=== PATIENT | male | born 1960 | race African-American/Black ===

== ENCOUNTER → 2020-11-23 | Day surgery (SDC) | payer MEDICARE ==
[~2020-11-23] MED LIST: Lidocaine 1% PF 5 ML VIAL ONE; Prevnar 13-Val Conj/PF 0.5 ML SYRINGE IM ONE; Sodium Bicarbonate 2.5 MEQ/5 ML VIAL ONE
== END ==
LOC: CSHRAD 12:43
PROVIDERS: ATTEND Specialist
DX: R18.8 Other ascites (principal)
CPT/HCPCS: 49083

== ENCOUNTER → 2020-11-30 | Day surgery (SDC) | payer MEDICARE ==
[~2020-11-30] MED LIST changes: +FLU VACC QS2020-21(6MOS UP)/PF 60 MCG/0.5 ML SYRINGE IM ONE; -Prevnar 13-Val Conj/PF 0.5 ML SYRINGE IM ONE
[2020-11-30 12:39] LABS: #Monocytes 0.8 10x3/uL (0.0-1.1); #Neutrophils 11.3 10x3/uL (1.5-8.4); %Basophils 0.3 % (0.0-2.0); %Eosinophils 0.2 % (0.0-6.0); %Lymphocytes 6.2 % (18.0-47.0); %Monocytes 6.1 % (0.0-10.0); Hemoglobin 13.9 g/dL (13.5-17.5); Mean Corpuscular HGB CONC 32.4 g/dL (32.0-36.0); Mean Corpuscular Hemoglobin 28.8 pg (27.0-33.0); Mean Platelet Volume 10.7 fl (7.4-10.4); Platelet Count 242 10x3/uL (150-450); RBC Distribution Width 14.4 % (11.5-14.5); Red Blood Cell (RBC) Count 4.82 10x6/uL (4.32-5.72); White Blood Cell (WBC) Count 13.2 10x3/uL (3.5-10.5)
[2020-11-30 12:46] LABS: ALT (SGPT) 21 U/L (8-55); AST (SGOT) 33 U/L (5-34); Albumin 2.9 g/dL (3.4-4.8); Alkaline Phosphatase 155 U/L (40-110); Anion Gap 14 mmol/L (10-20); BUN (Urea Nitrogen) 41 mg/dL (8.4-25.7); Bilirubin, Total 0.9 mg/dL (0.2-1.2); Calc. Creatinine Clearance 0 mL/min (70-130); Calcium 8.8 mg/dL (7.8-10.44); Carbon Dioxide 25 mmol/L (23-31); Chloride 99 mmol/L (98-107); Globulin 3.5 g/dL (2.4-3.5); Glucose 88 mg/dL (80-115); Potassium 5.5 mmol/L (3.5-5.1); Protein, Total 6.4 g/dL (5.8-8.1); Sodium 132 mmol/L (136-145)
[2020-11-30 14:11] VITALS: BMI 23.7
[2020-11-30 14:31] VITALS: BP 92/69; TEMP 97.1
== END ==
LOC: CSHRAD 10:59
PROVIDERS: ATTEND Specialist
DX: R18.8 Other ascites (principal)
CPT/HCPCS: 49083; 80053; 85025

== ENCOUNTER → 2020-12-07 | Day surgery (SDC) | payer MEDICARE ==
[~2020-12-07] MED LIST changes: -FLU VACC QS2020-21(6MOS UP)/PF 60 MCG/0.5 ML SYRINGE IM ONE; -Lidocaine 1% PF 5 ML VIAL ONE
[2020-12-07 14:19] VITALS: BP 84/58; TEMP 97.8
== END ==
LOC: CSHRAD 11:37
PROVIDERS: ATTEND Specialist
DX: R18.8 Other ascites (principal)
CPT/HCPCS: 49083

== ENCOUNTER → 2020-12-14 | Day surgery (SDC) | payer MEDICARE ==
[~2020-12-14] MED LIST changes: +Lidocaine 1% PF 5 ML VIAL ONE
== END ==
LOC: CSHRAD 10:18
PROVIDERS: ATTEND Specialist
DX: R18.8 Other ascites (principal)
CPT/HCPCS: 49083

== ENCOUNTER 2020-12-19 15:54 | Inpatient (IN) | payer MEDICARE ==
[2020-12-19] MEDS ORDERED: cefTRIAXone\\ROCEPHIN 2 GM VIAL ONE (16:39)
[2020-12-19 16:49] LABS: #Monocytes 0.9 10x3/uL (0.0-1.1); #Neutrophils 17.2 10x3/uL (1.5-8.4); %Basophils 0.2 % (0.0-2.0); %Eosinophils 0.1 % (0.0-6.0); %Monocytes 4.5 % (0.0-10.0); %Neutrophils 90.5 % (40.0-75.0); Hemoglobin 13.7 g/dL (13.5-17.5); Mean Corpuscular HGB CONC 32.2 g/dL (32.0-36.0); Mean Corpuscular Hemoglobin 29.5 pg (27.0-33.0); Mean Corpuscular Volume 91.6 fl (81.2-95.1); Mean Platelet Volume 9.9 fl (7.4-10.4); Platelet Count 188 10x3/uL (150-450); RBC Distribution Width 15.5 % (11.5-14.5); Red Blood Cell (RBC) Count 4.65 10x6/uL (4.32-5.72); White Blood Cell (WBC) Count 18.9 10x3/uL (3.5-10.5)
[2020-12-19 17:04] LABS: ALT (SGPT) 26 U/L (8-55); AST (SGOT) 32 U/L (5-34); Albumin 2.7 g/dL (3.4-4.8); Alkaline Phosphatase 123 U/L (40-110); Anion Gap 13 mmol/L (10-20); BUN (Urea Nitrogen) 36 mg/dL (8.4-25.7); Bilirubin, Total 1.5 mg/dL (0.2-1.2); Calc. Creatinine Clearance 0 mL/min (70-130); Calcium 8.5 mg/dL (7.8-10.44); Carbon Dioxide 22 mmol/L (23-31); Chloride 102 mmol/L (98-107); Globulin 2.7 g/dL (2.4-3.5); Glucose 98 mg/dL (80-115); Potassium 5.6 mmol/L (3.5-5.1); Protein, Total 5.4 g/dL (5.8-8.1); Sodium 131 mmol/L (136-145)
[2020-12-19 17:27] LABS: CKMB 2.6 ng/mL (0-6.6)
[2020-12-19] MEDS ORDERED: VANCOMYCIN 2 GRAM/400 ML BAG 2 GM in Premix Bag 1 BAG IVPB SCH (17:45)
[2020-12-19] MEDS ORDERED: Senokot S 8.6-50 MG TAB PO PRN (17:59)
[2020-12-19 18:51] LABS: Bilirubin Neg (Negative); Blood, Urine 150 (Negative); Clarity Clear (Clear); Glucose, Urine (Dipstick) Normal (Negative); Ketone, Urine Negative (Negative); Leukocyte 100 (Negative); Nitrite Positive (Negative); Protein, Urine (Dipstick) 15 mg/dl (Neg-Trace); Urobilinogen Normal mg/dL (Less than 2)
[2020-12-19 18:53] LABS: Troponin I 0.057 ng/mL (< 0.028)
[2020-12-19 19:09] LABS: Bacteria/HPF 4+ HPF (None Seen); Mucous/LPF 1+ LPF (<2+); Squamous Epithelial 0-3 HPF (0-3)
[2020-12-19 20:21] VITALS: BMI 26.3
[2020-12-19] MEDS: Albumin 25% 25 GM/100 ML BOT IVPB SCH (20:44)
[2020-12-19] MEDS: Cefepime 1 GM in Sodium Chloride 0.9% 100 ML IVPB SCH (21:06)
[2020-12-19] MEDS: HYDROcodone/Acetaminophen 7.5/325 mg Tablet PO PRN (22:52)
[2020-12-20 01:14] LABS: Troponin I 0.072 ng/mL (< 0.028)
[2020-12-20] MEDS: Albumin 25% 25 GM/100 ML BOT IVPB SCH ×3 (02:10→14:42)
[2020-12-20] MEDS: HYDROcodone/Acetaminophen 5/325 mg Tablet PO PRN ×2 (02:45→06:23)
[2020-12-20 06:00] LABS: ALT (SGPT) 21 U/L (8-55); AST (SGOT) 28 U/L (5-34); Albumin 3.1 g/dL (3.4-4.8); Alkaline Phosphatase 107 U/L (40-110); Anion Gap 14 mmol/L (10-20); BUN (Urea Nitrogen) 36 mg/dL (8.4-25.7); Bilirubin, Total 1.4 mg/dL (0.2-1.2); Calc. Creatinine Clearance 68 mL/min (70-130); Calcium 8.8 mg/dL (7.8-10.44); Carbon Dioxide 17 mmol/L (23-31); Chloride 104 mmol/L (98-107); Globulin 2.8 g/dL (2.4-3.5); Glucose 98 mg/dL (80-115); Potassium 5.3 mmol/L (3.5-5.1); Protein, Total 5.9 g/dL (5.8-8.1); Sodium 130 mmol/L (136-145)
[2020-12-20 06:02] LABS: INR-International Normal Ratio 1.1; Prothrombin Time 12.2 sec (9.5-12.1)
[2020-12-20 07:05] LABS: Anisocytosis SLIGHT = 6-15 cells (100X) (0-5/hpf); Band 5 % (5-11); Hemoglobin 12.5 g/dL (13.5-17.5); Lymphocytes 4 % (21-51); MDiff Complete? YES; Mean Corpuscular HGB CONC 32.1 g/dL (32.0-36.0); Mean Corpuscular Hemoglobin 29.6 pg (27.0-33.0); Mean Corpuscular Volume 92.2 fl (81.2-95.1); Mean Platelet Volume 10.5 fl (7.4-10.4); Microcytosis SLIGHT = 6-15 cells (100X) (0-5/hpf); Monocytes 3 % (0-10); Neutrophil 86 % (42-75); Platelet Count 170 10x3/uL (150-450); Platelet Morphology Comment Appears Adequate; RBC Distribution Width 15.7 % (11.5-14.5); Reactive Lymphocytes 2 % (0-10); Red Blood Cell (RBC) Count 4.23 10x6/uL (4.32-5.72); White Blood Cell (WBC) Count 16.6 10x3/uL (3.5-10.5)
[2020-12-20] MEDS: Cefepime 1 GM in Sodium Chloride 0.9% 100 ML IVPB SCH ×2 (08:10→21:09)
[2020-12-20] MEDS: Vancomycin HCl 1 GM in Sodium Chloride 0.9% 250 ML 250 ML IVPB SCH ×2 (10:11→21:08)
[2020-12-20] MEDS ORDERED: Amiodarone 200 MG TAB PO SCH (10:30)
[2020-12-20] MEDS ORDERED: Apixaban 5 MG TAB PO SCH (10:30)
[2020-12-20] MEDS: Furosemide 20 MG TAB PO SCH (14:42)
[2020-12-20] MEDS: Midodrine HCl 2.5 MG TAB PO SCH ×2 (14:42→21:08)
[2020-12-20 17:57] LABS: SARS-CoV-2 PCR by NAA Not Detected (NotDetected)
[2020-12-20] MEDS: Apixaban 5 MG TAB PO SCH (21:08)
[2020-12-20] MEDS: Amiodarone 200 MG TAB PO SCH (21:09)
[2020-12-20] MEDS: Tamsulosin HCl 0.4 MG CAP PO SCH (21:17)
[2020-12-21] MEDS: HYDROcodone/Acetaminophen 5/325 mg Tablet PO PRN (00:17)
[2020-12-21 06:45] LABS: Anion Gap 11 mmol/L (10-20); BUN (Urea Nitrogen) 37 mg/dL (8.4-25.7); Calc. Creatinine Clearance 74 mL/min (70-130); Calcium 8.5 mg/dL (7.8-10.44); Carbon Dioxide 23 mmol/L (23-31); Chloride 103 mmol/L (98-107); Glucose 110 mg/dL (80-115); Magnesium 2.1 mg/dL (1.6-2.6); Potassium 4.9 mmol/L (3.5-5.1); Sodium 132 mmol/L (136-145)
[2020-12-21] MEDS ORDERED: Spironolactone 25 MG TAB PO SCH (08:00)
[2020-12-21 08:33] LABS: Vancomycin, Trough 23.7 ug/mL
[2020-12-21] MEDS: Cefepime 1 GM in Sodium Chloride 0.9% 100 ML IVPB SCH ×2 (09:15→20:53)
[2020-12-21] MEDS: Furosemide 20 MG TAB PO SCH ×2 (09:16→14:27)
[2020-12-21] MEDS: Tamsulosin HCl 0.4 MG CAP PO SCH ×2 (09:16→20:51)
[2020-12-21] MEDS: Midodrine HCl 2.5 MG TAB PO SCH ×3 (09:16→20:50)
[2020-12-21] MEDS: Apixaban 5 MG TAB PO SCH ×2 (09:17→20:51)
[2020-12-21] MEDS: Amiodarone 200 MG TAB PO SCH ×2 (09:17→20:51)
[2020-12-21] MEDS: Vancomycin HCl 1 GM in Sodium Chloride 0.9% 250 ML 250 ML IVPB SCH (10:50)
[2020-12-21] MEDS: Vancomycin HCl 750 MG in Sodium Chloride 0.9% 250 ML 250 ML IVPB SCH ×2 (11:23→23:40)
[2020-12-21] MEDS: HYDROcodone/Acetaminophen 7.5/325 mg Tablet PO PRN ×2 (11:51→20:51)
[2020-12-21] MEDS: Spironolactone 25 MG TAB PO SCH ×2 (20:55→21:10)
[2020-12-22] MEDS: HYDROcodone/Acetaminophen 7.5/325 mg Tablet PO PRN (02:15)
[2020-12-22 05:33] LABS: #Monocytes 0.8 10x3/uL (0.0-1.1); #Neutrophils 9.6 10x3/uL (1.5-8.4); %Basophils 0.4 % (0.0-2.0); %Eosinophils 0.2 % (0.0-6.0); %Lymphocytes 5.8 % (18.0-47.0); %Monocytes 6.8 % (0.0-10.0); %Neutrophils 84.9 % (40.0-75.0); Mean Corpuscular HGB CONC 32.1 g/dL (32.0-36.0); Mean Corpuscular Hemoglobin 29.3 pg (27.0-33.0); Mean Corpuscular Volume 91.4 fl (81.2-95.1); Mean Platelet Volume 10.5 fl (7.4-10.4); Platelet Count 178 10x3/uL (150-450); Red Blood Cell (RBC) Count 4.43 10x6/uL (4.32-5.72); White Blood Cell (WBC) Count 11.3 10x3/uL (3.5-10.5)
[2020-12-22 05:43] LABS: Anion Gap 9 mmol/L (10-20); BUN (Urea Nitrogen) 37 mg/dL (8.4-25.7); Calc. Creatinine Clearance 78 mL/min (70-130); Calcium 8.4 mg/dL (7.8-10.44); Carbon Dioxide 24 mmol/L (23-31); Chloride 103 mmol/L (98-107); Glucose 97 mg/dL (80-115); Potassium 5.1 mmol/L (3.5-5.1); Sodium 131 mmol/L (136-145)
[2020-12-22] MEDS: Midodrine HCl 2.5 MG TAB PO SCH (08:33)
[2020-12-22] MEDS: Apixaban 5 MG TAB PO SCH (08:33)
[2020-12-22] MEDS: Amiodarone 200 MG TAB PO SCH (08:33)
[2020-12-22] MEDS: Cefepime 1 GM in Sodium Chloride 0.9% 100 ML IVPB SCH (08:33)
[2020-12-22] MEDS: Furosemide 20 MG TAB PO SCH (08:33)
[2020-12-22] MEDS: Spironolactone 25 MG TAB PO SCH (08:35)
[2020-12-22] MEDS: Tamsulosin HCl 0.4 MG CAP PO SCH (08:35)
[2020-12-22] MEDS: Vancomycin HCl 750 MG in Sodium Chloride 0.9% 250 ML 250 ML IVPB SCH (11:35)
[2020-12-22 12:23] VITALS: BP 88/64; TEMP 98
== END 2020-12-22 14:40 | disposition home or self-care (01) | DRG 872 ==
LOC: CSHERS 15:54 → CSHTELE 18:49
PROVIDERS: ADMIT Family Medicine; ATTEND Family Medicine
PROC: 0W9G3ZZ Drainage of Peritoneal Cavity, Percutaneous Approach (ICD-10-PCS; principal; 2020-12-20)
DX: A41.9 Sepsis, unspecified organism (principal); L03.116 Cellulitis of left lower limb; R18.8 Other ascites; I13.0 Hypertensive heart and chronic kidney disease with heart failure and stage 1 through stage 4 chronic kidney disease, or unspecified chronic kidney disease; I50.42 Chronic combined systolic (congestive) and diastolic (congestive) heart failure; Z20.822 Contact with and (suspected) exposure to COVID-19; Z95.810 Presence of automatic (implantable) cardiac defibrillator; I48.0 Paroxysmal atrial fibrillation; Z79.01 Long term (current) use of anticoagulants; Z79.82 Long term (current) use of aspirin; Z79.899 Other long term (current) drug therapy; Z86.73 Personal history of transient ischemic attack (TIA), and cerebral infarction without residual deficits; I95.89 Other hypotension; E87.5 Hyperkalemia; N18.30 Chronic kidney disease, stage 3 unspecified
CPT/HCPCS: 36415; 36416; 49083; 71045; 80048; 80053; 80202; 81003; 81015; 82553; 83605; 83735; 83880; 84484; 85007; 85025; 85027; 85610; 86140; 87040; 87149; 87635; 93005; 93306; 93970; 96365; 96367; J0692; J0696; J3370; J3490; J7050; P9047; U0003; U0005

== ENCOUNTER 2020-12-28 10:30 | Day surgery (SDC) | payer MEDICARE ==
[2020-12-28] MEDS ORDERED: Sodium Bicarbonate 2.5 MEQ/5 ML VIAL ONE (10:51)
[2020-12-28 10:58] VITALS: BP 88/62; TEMP 98
== END 2020-12-28 12:10 | disposition home or self-care (01) ==
LOC: CSHRAD 10:30
PROVIDERS: ATTEND Specialist
DX: R18.8 Other ascites (principal)
CPT/HCPCS: 49083

== ENCOUNTER 2021-01-04 10:32 | Day surgery (SDC) | payer MEDICARE ==
[2021-01-04 10:40] VITALS: BMI 23.8
[2021-01-04] MEDS ORDERED: Sodium Bicarbonate 2.5 MEQ/5 ML VIAL ONE (10:40)
[2021-01-04 11:02] VITALS: BP 91/67; TEMP 97.8
== END 2021-01-04 12:00 | disposition home or self-care (01) ==
LOC: CSHRAD 10:32
PROVIDERS: ATTEND Specialist
DX: R18.8 Other ascites (principal)
CPT/HCPCS: 49083

== ENCOUNTER → 2021-01-11 | Day surgery (SDC) | payer MEDICARE ==
[~2021-01-11] MED LIST changes: -Lidocaine 1% PF 5 ML VIAL ONE
== END ==
LOC: CSHRAD 10:42
PROVIDERS: ATTEND Specialist
DX: R18.8 Other ascites (principal)
CPT/HCPCS: 49083

== ENCOUNTER 2021-01-18 10:19 | Day surgery (SDC) | payer MEDICARE ==
[2021-01-18] MEDS ORDERED: Sodium Bicarbonate 2.5 MEQ/5 ML VIAL ONE (10:36)
[2021-01-18 10:43] VITALS: BMI 23.8
[2021-01-18 10:59] VITALS: BP 98/71; TEMP 98.4
== END 2021-01-18 11:50 | disposition home or self-care (01) ==
LOC: CSHRAD 10:19
PROVIDERS: ATTEND Specialist
DX: R18.8 Other ascites (principal)
CPT/HCPCS: 49083

== ENCOUNTER → 2021-01-25 | Day surgery (SDC) | payer MEDICARE | LOC: CSHRAD 10:38 | PROVIDERS: ATTEND Specialist | DX: R18.8 Other ascites (principal) | CPT/HCPCS: 49083 ==

== ENCOUNTER 2021-02-01 10:12 | Day surgery (SDC) | payer MEDICARE ==
[2021-02-01 10:29] VITALS: BMI 23.8
[2021-02-01] MEDS ORDERED: Sodium Bicarbonate 2.5 MEQ/5 ML VIAL ONE (10:37)
[2021-02-01 10:53] VITALS: BP 94/63; TEMP 97.8
== END 2021-02-01 11:30 | disposition home or self-care (01) ==
LOC: CSHRAD 10:12
PROVIDERS: ATTEND Specialist
DX: R18.8 Other ascites (principal)
CPT/HCPCS: 49083

== ENCOUNTER 2021-02-08 10:32 | Day surgery (SDC) | payer MEDICARE ==
[2021-02-08] MEDS ORDERED: Sodium Bicarbonate 2.5 MEQ/5 ML VIAL ONE (11:06)
[2021-02-08] MEDS ORDERED: Lidocaine 1% PF 5 ML VIAL ONE (11:06)
[2021-02-08 11:26] VITALS: BMI 23.8
[2021-02-08 11:30] VITALS: BP 90/69; TEMP 97.8
== END 2021-02-08 12:15 | disposition home or self-care (01) ==
LOC: CSHRAD 10:32
PROVIDERS: ATTEND Specialist
DX: R18.8 Other ascites (principal)
CPT/HCPCS: 49083

== ENCOUNTER 2021-04-26 12:54 | Day surgery (SDC) | payer MEDICARE ==
[2021-04-26] MEDS ORDERED: Sodium Bicarbonate 2.5 MEQ/5 ML VIAL ONE (13:04)
[2021-04-26 15:40] VITALS: BP 95/58
== END 2021-04-26 15:15 | disposition home or self-care (01) ==
LOC: CSHRAD 12:54
PROVIDERS: ATTEND Specialist
DX: R18.8 Other ascites (principal)
CPT/HCPCS: 49083

== ENCOUNTER 2021-05-10 10:17 | Day surgery (SDC) | payer MEDICARE ==
[2021-05-10] MEDS ORDERED: Sodium Bicarbonate 2.5 MEQ/5 ML VIAL ONE (10:42)
[2021-05-10 11:56] VITALS: BP 84/57; TEMP 97.8
== END 2021-05-10 11:40 | disposition home or self-care (01) ==
LOC: CSHRAD 10:17
PROVIDERS: ATTEND Specialist
DX: R18.8 Other ascites (principal)
CPT/HCPCS: 49083

== ENCOUNTER 2021-07-12 10:16 | Day surgery (SDC) | payer MEDICARE, OTHER ==
[2021-07-12] MEDS ORDERED: Lidocaine 1% PF 5 ML VIAL ONE (10:46)
[2021-07-12] MEDS ORDERED: Sodium Bicarbonate 2.5 MEQ/5 ML VIAL ONE (10:46)
[2021-07-12 11:57] VITALS: BP 98/72; TEMP 97.3
== END 2021-07-12 11:30 | disposition home or self-care (01) ==
LOC: CSHRAD 10:16
PROVIDERS: ATTEND Specialist
DX: R18.8 Other ascites (principal); I50.9 Heart failure, unspecified
CPT/HCPCS: 49083

== ENCOUNTER 2021-07-19 10:13 | Day surgery (SDC) | payer MEDICARE ==
[2021-07-19] MEDS ORDERED: Sodium Bicarbonate 2.5 MEQ/5 ML VIAL ONE (10:50)
[2021-07-19 11:17] VITALS: BP 91/66; TEMP 98.7
[2021-07-19] MEDS ORDERED: FLU VACC QS2021-22(6MOS UP)/PF 60 MCG/0.5 ML SYRINGE IM ONE (11:45)
== END 2021-07-19 12:00 | disposition home or self-care (01) ==
LOC: CSHRAD 10:13
PROVIDERS: ATTEND Specialist
DX: R18.8 Other ascites (principal)
CPT/HCPCS: 49083

== ENCOUNTER 2021-07-26 10:09 | Day surgery (SDC) | payer MEDICARE ==
[2021-07-26] MEDS ORDERED: Sodium Bicarbonate 2.5 MEQ/5 ML VIAL ONE (10:46)
[2021-07-26 10:49] VITALS: BP 112/73; TEMP 98.4
== END 2021-07-26 12:00 | disposition home or self-care (01) ==
LOC: CSHRAD 10:09
PROVIDERS: ATTEND Specialist
DX: R18.8 Other ascites (principal)
CPT/HCPCS: 49083

== ENCOUNTER 2021-08-02 10:13 | Day surgery (SDC) | payer MEDICARE ==
[2021-08-02 10:38] VITALS: BP 95/72; TEMP 97.8
[2021-08-02] MEDS ORDERED: Sodium Bicarbonate 2.5 MEQ/5 ML VIAL ONE (11:11)
[2021-08-02] MEDS ORDERED: Lidocaine 1% PF 5 ML VIAL ONE ×2 (11:36→11:37)
== END 2021-08-02 12:04 | disposition home or self-care (01) ==
LOC: CSHRAD 10:13
PROVIDERS: ATTEND Specialist
DX: R18.8 Other ascites (principal)
CPT/HCPCS: 49083

== ENCOUNTER 2021-08-09 10:16 | Day surgery (SDC) | payer MEDICARE ==
[2021-08-09] MEDS ORDERED: Sodium Bicarbonate 2.5 MEQ/5 ML VIAL ONE (10:50)
[2021-08-09] MEDS ORDERED: Lidocaine 1% PF 5 ML VIAL ONE (10:50)
[2021-08-09 11:36] VITALS: BP 98/70; TEMP 99.1
== END 2021-08-09 11:38 | disposition home or self-care (01) ==
LOC: CSHRAD 10:16
PROVIDERS: ATTEND Specialist
DX: R18.8 Other ascites (principal)
CPT/HCPCS: 49083

== ENCOUNTER 2021-08-15 10:09 | Day surgery (SDC) | payer MEDICARE ==
[2021-08-15] MEDS ORDERED: Sodium Bicarbonate 2.5 MEQ/5 ML VIAL ONE (10:24)
[2021-08-15] MEDS ORDERED: Lidocaine 1% PF 5 ML VIAL ONE (10:24)
== END 2021-08-15 11:19 | disposition home or self-care (01) ==
LOC: CSHRAD 10:09
PROVIDERS: ATTEND Specialist
DX: R18.8 Other ascites (principal)
CPT/HCPCS: 49083

== ENCOUNTER 2021-08-23 10:17 | Day surgery (SDC) | payer MEDICARE ==
[2021-08-23] MEDS ORDERED: Lidocaine 1% PF 5 ML VIAL ONE (10:39)
[2021-08-23] MEDS ORDERED: Sodium Bicarbonate 2.5 MEQ/5 ML VIAL ONE (10:39)
[2021-08-23 11:32] VITALS: BP 98/68; TEMP 98.6
[2021-08-23] MEDS ORDERED: FLU VACC QS2021-22(6MOS UP)/PF 60 MCG/0.5 ML SYRINGE IM ONE (11:45)
== END 2021-08-23 11:51 | disposition home or self-care (01) ==
LOC: CSHRAD 10:17
PROVIDERS: ATTEND Specialist
DX: R18.8 Other ascites (principal)
CPT/HCPCS: 49083

== ENCOUNTER 2021-08-30 10:12 | Day surgery (SDC) | payer MEDICARE ==
[2021-08-30 11:25] LABS: #Basophils 0.1 10x3/uL (0.0-0.2); #Monocytes 0.5 10x3/uL (0.0-1.1); #Neutrophils 5.9 10x3/uL (1.5-8.4); %Basophils 0.7 % (0.0-2.0); %Eosinophils 0.5 % (0.0-6.0); %Lymphocytes 12.7 % (18.0-47.0); %Monocytes 6.7 % (0.0-10.0); Hemoglobin 14.1 g/dL (13.5-17.5); Mean Corpuscular HGB CONC 30.5 g/dL (32.0-36.0); Mean Corpuscular Hemoglobin 29.1 pg (27.0-33.0); Mean Corpuscular Volume 95.5 fl (81.2-95.1); Mean Platelet Volume 11.5 fl (7.4-10.4); Platelet Count 165 10x3/uL (150-450); RBC Distribution Width 15.2 % (11.5-14.5); Red Blood Cell (RBC) Count 4.85 10x6/uL (4.32-5.72); White Blood Cell (WBC) Count 7.4 10x3/uL (3.5-10.5)
[2021-08-30 11:26] LABS: PTT 29.9 sec (22.0-33.0); Prothrombin Time 11.4 sec (9.5-12.1)
[2021-08-30 11:28] VITALS: TEMP 97.6
[2021-08-30 12:10] VITALS: BP 93/61
== END 2021-08-30 12:02 | disposition home or self-care (01) ==
LOC: CSHRAD 10:12
PROVIDERS: ATTEND Specialist
DX: R18.8 Other ascites (principal)
CPT/HCPCS: 49083; 85025; 85610; 85730

== ENCOUNTER 2021-09-06 10:20 | Day surgery (SDC) | payer MEDICARE ==
[2021-09-06] MEDS ORDERED: Lidocaine 1% PF 5 ML VIAL ONE (10:47)
[2021-09-06] MEDS ORDERED: Sodium Bicarbonate 2.5 MEQ/5 ML VIAL ONE (10:48)
[2021-09-06 10:54] VITALS: BP 94/68; TEMP 98
== END 2021-09-06 12:00 | disposition home or self-care (01) ==
LOC: CSHRAD 10:20
PROVIDERS: ATTEND Specialist
DX: R18.8 Other ascites (principal)
CPT/HCPCS: 49083

== ENCOUNTER 2021-09-13 10:16 | Day surgery (SDC) | payer MEDICARE ==
[2021-09-13 11:43] VITALS: BP 93/68
[2021-09-13] MEDS ORDERED: Prevnar 13-Val Conj/PF 0.5 ML SYRINGE IM ONE (12:00)
[2021-09-13] MEDS ORDERED: FLU VACC QS2021-22(6MOS UP)/PF 60 MCG/0.5 ML SYRINGE IM ONE (12:00)
== END 2021-09-13 11:23 | disposition home or self-care (01) ==
LOC: CSHRAD 10:16
PROVIDERS: ATTEND Specialist
DX: R18.8 Other ascites (principal)
CPT/HCPCS: 49083

== ENCOUNTER 2021-09-20 10:15 | Day surgery (SDC) | payer MEDICARE ==
[2021-09-20] MEDS ORDERED: Lidocaine 1% PF 5 ML VIAL ONE (10:33)
[2021-09-20] MEDS ORDERED: Sodium Bicarbonate 2.5 MEQ/5 ML VIAL ONE (10:33)
[2021-09-20 10:54] VITALS: BP 91/62; TEMP 97.8
== END 2021-09-20 11:50 | disposition home or self-care (01) ==
LOC: CSHRAD 10:15
PROVIDERS: ATTEND Specialist
DX: R18.8 Other ascites (principal); Z87.891 Personal history of nicotine dependence; Z79.899 Other long term (current) drug therapy; Z79.01 Long term (current) use of anticoagulants
CPT/HCPCS: 49083

== ENCOUNTER 2021-09-27 10:17 | Day surgery (SDC) | payer MEDICARE ==
[2021-09-27 11:00] LABS: #Monocytes 0.5 10x3/uL (0.0-1.1); #Neutrophils 7.7 10x3/uL (1.5-8.4); %Basophils 0.3 % (0.0-2.0); %Eosinophils 0.4 % (0.0-6.0); %Lymphocytes 10.4 % (18.0-47.0); %Monocytes 5.4 % (0.0-10.0); %Neutrophils 83.1 % (40.0-75.0); Hemoglobin 15.6 g/dL (13.5-17.5); Mean Corpuscular Hemoglobin 28.2 pg (27.0-33.0); Mean Corpuscular Volume 91.1 fl (81.2-95.1); Platelet Count 220 10x3/uL (150-450); RBC Distribution Width 14.8 % (11.5-14.5); Red Blood Cell (RBC) Count 5.53 10x6/uL (4.32-5.72); White Blood Cell (WBC) Count 9.3 10x3/uL (3.5-10.5)
[2021-09-27] MEDS ORDERED: Sodium Bicarbonate 2.5 MEQ/5 ML VIAL ONE (11:00)
[2021-09-27] MEDS ORDERED: Lidocaine 1% PF 5 ML VIAL ONE (11:00)
[2021-09-27 11:11] VITALS: BP 93/70; TEMP 97.8
[2021-09-27 11:21] LABS: PTT 28.2 sec (22.0-33.0)
== END 2021-09-27 12:00 | disposition home or self-care (01) ==
LOC: CSHRAD 10:17
PROVIDERS: ATTEND Specialist
DX: R18.8 Other ascites (principal)
CPT/HCPCS: 49083; 85025; 85610; 85730

== ENCOUNTER 2021-10-04 10:21 | Day surgery (SDC) | payer MEDICARE ==
[2021-10-04 10:48] VITALS: BP 93/69; TEMP 98
[2021-10-04] MEDS ORDERED: Sodium Bicarbonate 2.5 MEQ/5 ML VIAL ONE (10:48)
[2021-10-04] MEDS ORDERED: Lidocaine 1% PF 5 ML VIAL ONE (10:48)
== END 2021-10-04 11:43 | disposition home or self-care (01) ==
LOC: CSHRAD 10:21
PROVIDERS: ATTEND Specialist
DX: R18.8 Other ascites (principal)
CPT/HCPCS: 49083

== ENCOUNTER 2021-10-10 18:41 | Emergency (ER) | payer MEDICARE ==
[2021-10-10] MEDS ORDERED: Ketorolac Tromethamine 30 MG/ML VIAL ONE (19:50)
== END 2021-10-10 21:04 | disposition home or self-care (01) ==
LOC: CSHERS 18:41
DX: K40.30 Unilateral inguinal hernia, with obstruction, without gangrene, not specified as recurrent (principal); I50.9 Heart failure, unspecified; F17.200 Nicotine dependence, unspecified, uncomplicated; Z86.73 Personal history of transient ischemic attack (TIA), and cerebral infarction without residual deficits
CPT/HCPCS: 96374; J1885

== ENCOUNTER 2021-10-11 10:16 | Day surgery (SDC) | payer MEDICARE ==
[2021-10-11] MEDS ORDERED: Sodium Bicarbonate 2.5 MEQ/5 ML VIAL ONE (10:31)
[2021-10-11] MEDS ORDERED: Lidocaine 1% PF 5 ML VIAL ONE (10:31)
[2021-10-11 11:09] VITALS: BP 96/59; TEMP 97.4
[2021-10-11] MEDS ORDERED: FLU VACC QS2021-22(6MOS UP)/PF 60 MCG/0.5 ML SYRINGE IM ONE (11:30)
== END 2021-10-11 12:05 | disposition home or self-care (01) ==
LOC: CSHRAD 10:16
PROVIDERS: ATTEND Specialist
DX: R18.8 Other ascites (principal)
CPT/HCPCS: 49083

== ENCOUNTER 2021-10-18 10:32 | Day surgery (SDC) | payer MEDICARE ==
[2021-10-18 11:06] VITALS: TEMP 98.2
[2021-10-18] MEDS ORDERED: Sodium Bicarbonate 2.5 MEQ/5 ML VIAL ONE (11:15)
[2021-10-18] MEDS ORDERED: Lidocaine 1% PF 5 ML VIAL ONE (11:15)
== END 2021-10-18 12:10 | disposition home or self-care (01) ==
LOC: CSHRAD 10:32
PROVIDERS: ATTEND Specialist
DX: R18.8 Other ascites (principal)
CPT/HCPCS: 49083

== ENCOUNTER 2021-10-25 09:45 | Day surgery (SDC) | payer MEDICARE ==
[2021-10-25] MEDS ORDERED: Sodium Bicarbonate 2.5 MEQ/5 ML VIAL ONE (10:11)
[2021-10-25] MEDS ORDERED: Lidocaine 1% PF 5 ML VIAL ONE (10:11)
[2021-10-25 11:06] LABS: #Eosinphils 0.1 10x3/uL (0.0-0.5); #Monocytes 0.6 10x3/uL (0.0-1.1); #Neutrophils 5.9 10x3/uL (1.5-8.4); %Basophils 0.4 % (0.0-2.0); %Eosinophils 0.7 % (0.0-6.0); %Lymphocytes 12.6 % (18.0-47.0); %Monocytes 7.9 % (0.0-10.0); Hemoglobin 14.2 g/dL (13.5-17.5); Mean Corpuscular HGB CONC 31.5 g/dL (32.0-36.0); Mean Corpuscular Hemoglobin 28.6 pg (27.0-33.0); Mean Corpuscular Volume 90.7 fl (81.2-95.1); Mean Platelet Volume 11.2 fl (7.4-10.4); Platelet Count 175 10x3/uL (150-450); RBC Distribution Width 14.9 % (11.5-14.5); Red Blood Cell (RBC) Count 4.97 10x6/uL (4.32-5.72); White Blood Cell (WBC) Count 7.6 10x3/uL (3.5-10.5)
[2021-10-25 11:09] LABS: PTT 29.3 sec (22.0-33.0); Prothrombin Time 10.9 sec (9.5-12.1)
[2021-10-25 13:00] VITALS: BP 90/69; TEMP 98.7
== END 2021-10-25 13:05 | disposition home or self-care (01) ==
LOC: CSHRAD 09:45
PROVIDERS: ATTEND Specialist
DX: R18.8 Other ascites (principal)
CPT/HCPCS: 49083; 85025; 85610; 85730

== ENCOUNTER 2021-11-01 10:23 | Day surgery (SDC) | payer MEDICARE ==
[2021-11-01 11:21] VITALS: BP 98/65; TEMP 98.2
[2021-11-01] MEDS ORDERED: FLU VACC QS2021-22(6MOS UP)/PF 60 MCG/0.5 ML SYRINGE IM ONE (11:30)
== END 2021-11-01 12:30 | disposition home or self-care (01) ==
LOC: CSHRAD 10:23
PROVIDERS: ATTEND Specialist
DX: R18.8 Other ascites (principal); Z87.891 Personal history of nicotine dependence
CPT/HCPCS: 49083

== ENCOUNTER 2021-11-08 10:20 | Day surgery (SDC) | payer MEDICARE ==
[2021-11-08 10:53] VITALS: BP 92/71; TEMP 98.8
== END 2021-11-08 12:20 | disposition home or self-care (01) ==
LOC: CSHRAD 10:20
PROVIDERS: ATTEND Specialist
DX: R18.8 Other ascites (principal); Z87.891 Personal history of nicotine dependence
CPT/HCPCS: 49083

== ENCOUNTER 2021-11-10 17:38 | Emergency (ER) | payer MEDICARE ==
[2021-11-10] MEDS ORDERED: HYDROcodone/Acetaminophen 5/325 mg Tablet ONE (18:31)
[2021-11-10] MEDS ORDERED: Ketorolac Tromethamine 30 MG/ML VIAL ONE (18:31)
== END 2021-11-10 19:35 | disposition home or self-care (01) ==
LOC: CSHERS 17:38
DX: K40.90 Unilateral inguinal hernia, without obstruction or gangrene, not specified as recurrent (principal); I50.9 Heart failure, unspecified; Z86.73 Personal history of transient ischemic attack (TIA), and cerebral infarction without residual deficits; F17.200 Nicotine dependence, unspecified, uncomplicated
CPT/HCPCS: 93005; 93010; 96374; J1885

== ENCOUNTER 2021-11-15 10:23 | Day surgery (SDC) | payer MEDICARE ==
[2021-11-15] MEDS ORDERED: Sodium Bicarbonate 2.5 MEQ/5 ML VIAL ONE (10:40)
[2021-11-15 11:00] VITALS: BMI 21.7
[2021-11-15] MEDS ORDERED: FLU VACC QS2021-22(6MOS UP)/PF 60 MCG/0.5 ML SYRINGE IM ONE (11:15)
== END 2021-11-15 11:50 | disposition home or self-care (01) ==
LOC: CSHRAD 10:23
PROVIDERS: ATTEND Specialist
DX: R18.8 Other ascites (principal)
CPT/HCPCS: 49083

== ENCOUNTER 2021-11-22 10:35 | Day surgery (SDC) | payer MEDICARE ==
[2021-11-22] MEDS ORDERED: Sodium Bicarbonate 2.5 MEQ/5 ML VIAL ONE (11:11)
[2021-11-22 11:23] LABS: Hemoglobin 14.4 g/dL (13.5-17.5); Mean Corpuscular HGB CONC 32.1 g/dL (32.0-36.0); Mean Corpuscular Hemoglobin 28.7 pg (27.0-33.0); Mean Corpuscular Volume 89.4 fl (81.2-95.1); Mean Platelet Volume 11.2 fl (7.4-10.4); Platelet Count 182 10x3/uL (150-450); RBC Distribution Width 14.3 % (11.5-14.5); Red Blood Cell (RBC) Count 5.01 10x6/uL (4.32-5.72)
[2021-11-22 11:25] VITALS: BP 102/57
[2021-11-22] MEDS ORDERED: FLU VACC QS2021-22(6MOS UP)/PF 60 MCG/0.5 ML SYRINGE IM ONE (11:30)
[2021-11-22 11:34] LABS: INR-International Normal Ratio 0.9; Prothrombin Time 10.5 sec (9.5-12.1)
== END 2021-11-22 11:59 | disposition home or self-care (01) ==
LOC: CSHRAD 10:35
PROVIDERS: ATTEND Specialist
DX: R18.8 Other ascites (principal)
CPT/HCPCS: 49083; 85027; 85610

== ENCOUNTER 2021-12-27 10:18 | Day surgery (SDC) | payer MEDICARE ==
[2021-12-27] MEDS ORDERED: Sodium Bicarbonate 2.5 MEQ/5 ML VIAL ONE (11:12)
[2021-12-27] MEDS ORDERED: Lidocaine 1% PF 5 ML VIAL ONE (11:12)
[2021-12-27 11:23] LABS: #Monocytes 0.5 10x3/uL (0.0-1.1); #Neutrophils 6.4 10x3/uL (1.5-8.4); %Basophils 0.4 % (0.0-2.0); %Eosinophils 0.3 % (0.0-6.0); %Lymphocytes 10.4 % (18.0-47.0); %Monocytes 6.4 % (0.0-10.0); Hemoglobin 15.5 g/dL (13.5-17.5); Mean Corpuscular HGB CONC 32.2 g/dL (32.0-36.0); Mean Corpuscular Hemoglobin 28.7 pg (27.0-33.0); Mean Corpuscular Volume 89.1 fl (81.2-95.1); Mean Platelet Volume 11.3 fl (7.4-10.4); Platelet Count 208 10x3/uL (150-450); RBC Distribution Width 14.6 % (11.5-14.5); White Blood Cell (WBC) Count 7.8 10x3/uL (3.5-10.5)
[2021-12-27 11:37] LABS: PTT 28.5 sec (22.0-33.0); Prothrombin Time 10.5 sec (9.5-12.1)
[2021-12-27 12:38] VITALS: BP 95/72; TEMP 97.8
== END 2021-12-27 12:10 | disposition home or self-care (01) ==
LOC: CSHRAD 10:18
PROVIDERS: ATTEND Specialist
DX: R18.8 Other ascites (principal)
CPT/HCPCS: 49083; 85025; 85610; 85730

== ENCOUNTER 2022-01-17 10:18 | Day surgery (SDC) | payer MEDICARE ==
[2022-01-17] MEDS ORDERED: Lidocaine 1% PF 5 ML VIAL ONE (10:40)
[2022-01-17 10:52] VITALS: BP 106/73
== END 2022-01-17 12:04 | disposition home or self-care (01) ==
LOC: CSHRAD 10:18
PROVIDERS: ATTEND Specialist
DX: R18.8 Other ascites (principal); I50.9 Heart failure, unspecified; Z87.891 Personal history of nicotine dependence
CPT/HCPCS: 49083

== ENCOUNTER 2022-01-24 10:27 | Day surgery (SDC) | payer MEDICARE ==
[2022-01-24 11:00] VITALS: BP 99/75; TEMP 97.4
[2022-01-24] MEDS ORDERED: Lidocaine 1% PF 5 ML VIAL ONE ×2 (11:07)
[2022-01-24] MEDS ORDERED: Sodium Bicarbonate 2.5 MEQ/5 ML VIAL ONE (11:07)
== END 2022-01-24 12:13 | disposition home or self-care (01) ==
LOC: CSHRAD 10:27
PROVIDERS: ATTEND Specialist
DX: R18.8 Other ascites (principal)
CPT/HCPCS: 49083

== ENCOUNTER 2022-01-31 10:22 | Day surgery (SDC) | payer MEDICARE ==
[2022-01-31] MEDS ORDERED: Lidocaine 1% PF 5 ML VIAL ONE (10:58)
[2022-01-31] MEDS ORDERED: Sodium Bicarbonate 2.5 MEQ/5 ML VIAL ONE (10:58)
[2022-01-31 10:59] VITALS: BP 104/68; TEMP 97.5
[2022-01-31 11:14] LABS: Hemoglobin 14.7 g/dL (13.5-17.5); Mean Corpuscular HGB CONC 32.6 g/dL (32.0-36.0); Mean Corpuscular Hemoglobin 29.2 pg (27.0-33.0); Mean Corpuscular Volume 89.7 fl (81.2-95.1); Mean Platelet Volume 11.6 fl (7.4-10.4); Platelet Count 199 10x3/uL (150-450); RBC Distribution Width 14.7 % (11.5-14.5); Red Blood Cell (RBC) Count 5.03 10x6/uL (4.32-5.72); White Blood Cell (WBC) Count 8.6 10x3/uL (3.5-10.5)
[2022-01-31 11:23] LABS: Prothrombin Time 10.9 sec (9.5-12.1)
== END 2022-01-31 11:51 | disposition home or self-care (01) ==
LOC: CSHRAD 10:22
PROVIDERS: ATTEND Specialist
DX: R18.8 Other ascites (principal)
CPT/HCPCS: 49083; 85027; 85610

== ENCOUNTER → 2022-02-07 | Day surgery (SDC) | payer MEDICARE ==
[2022-02-07 10:58] VITALS: BP 102/68; TEMP 97.6
== END ==
LOC: CSHRAD 10:15
PROVIDERS: ATTEND Specialist
DX: R18.8 Other ascites (principal)
CPT/HCPCS: 49083

== ENCOUNTER → 2022-02-14 | Day surgery (SDC) | payer MEDICARE ==
[~2022-02-14] MED LIST changes: +Lidocaine 1% PF 5 ML VIAL ONE
== END ==
LOC: CSHRAD 10:13
PROVIDERS: ATTEND Specialist
DX: R18.8 Other ascites (principal); K74.60 Unspecified cirrhosis of liver
CPT/HCPCS: 49083

== ENCOUNTER → 2022-02-21 | Day surgery (SDC) | payer MEDICARE ==
[2022-02-21 11:34] LABS: Anion Gap 12 mmol/L (10-20); BUN (Urea Nitrogen) 31 mg/dL (8.4-25.7); Calc. Creatinine Clearance 53 mL/min (70-130); Calcium 9.1 mg/dL (7.8-10.44); Carbon Dioxide 28 mmol/L (23-31); Chloride 104 mmol/L (98-107); Glucose 86 mg/dL (80-115); Magnesium 2.1 mg/dL (1.6-2.6); Potassium 4.4 mmol/L (3.5-5.1); Sodium 140 mmol/L (136-145)
== END ==
LOC: CSHRAD 10:23
PROVIDERS: ATTEND Specialist
DX: R18.8 Other ascites (principal); I50.9 Heart failure, unspecified
CPT/HCPCS: 49083; 80048; 83735

== ENCOUNTER → 2022-02-28 | Day surgery (SDC) | payer MEDICARE ==
[2022-02-28 11:12] VITALS: TEMP 98.1
== END | disposition home or self-care (01) ==
LOC: CSHRAD 10:19
PROVIDERS: ATTEND Specialist
PROC: 0W9G3ZZ Drainage of Peritoneal Cavity, Percutaneous Approach (ICD-10-PCS; principal; 2022-02-28)
DX: R18.8 Other ascites (principal)
CPT/HCPCS: 49083

== ENCOUNTER 2022-03-05 09:17 | Outpatient (CLI) | payer MEDICARE | END 2022-03-05 09:18 | disposition home or self-care (01) | LOC: CSHWCC 09:17 | PROVIDERS: ATTEND Nurse Practitioner Family | DX: I87.312 Chronic venous hypertension (idiopathic) with ulcer of left lower extremity (principal); L97.822 Non-pressure chronic ulcer of other part of left lower leg with fat layer exposed; R60.0 Localized edema | CPT/HCPCS: 97139; G0463; 99203 ==

== ENCOUNTER 2022-03-07 10:14 | Day surgery (SDC) | payer MEDICARE ==
[2022-03-07] MEDS ORDERED: Lidocaine 1% PF 5 ML VIAL ONE (10:29)
[2022-03-07] MEDS ORDERED: Sodium Bicarbonate 2.5 MEQ/5 ML VIAL ONE (10:29)
[2022-03-07 11:57] VITALS: BP 102/59; TEMP 97.6
== END 2022-03-07 11:47 | disposition home or self-care (01) ==
LOC: CSHRAD 10:14
PROVIDERS: ATTEND Specialist
PROC: 0W9G3ZZ Drainage of Peritoneal Cavity, Percutaneous Approach (ICD-10-PCS; principal; 2022-03-07)
DX: R18.8 Other ascites (principal)
CPT/HCPCS: 49083

== ENCOUNTER → 2022-03-14 | Day surgery (SDC) | payer MEDICARE ==
[2022-03-13 12:57] VITALS: BMI 22.4
[2022-03-14 12:36] VITALS: TEMP 98.3
[2022-03-14 14:21] LABS: Hemoglobin 13.4 g/dL (13.5-17.5); Mean Corpuscular HGB CONC 32.8 g/dL (32.0-36.0); Mean Corpuscular Hemoglobin 28.9 pg (27.0-33.0); Mean Corpuscular Volume 88.3 fl (81.2-95.1); Platelet Count 135 10x3/uL (150-450); RBC Distribution Width 15.2 % (11.5-14.5); Red Blood Cell (RBC) Count 4.63 10x6/uL (4.32-5.72); White Blood Cell (WBC) Count 24.5 10x3/uL (3.5-10.5)
[2022-03-14 14:27] LABS: INR-International Normal Ratio 1.2; PTT 32.6 sec (22.0-33.0)
== END | disposition home or self-care (01) ==
LOC: CSHRAD 10:25
PROVIDERS: ATTEND Specialist
PROC: 0W9G3ZZ Drainage of Peritoneal Cavity, Percutaneous Approach (ICD-10-PCS; principal; 2022-03-14)
DX: R18.8 Other ascites (principal)
CPT/HCPCS: 49083; 85027; 85610; 85730

== ENCOUNTER 2022-03-21 10:19 | Day surgery (SDC) | payer MEDICARE ==
[2022-03-21] MEDS ORDERED: Lidocaine 1% PF 5 ML VIAL ONE (10:43)
[2022-03-21] MEDS ORDERED: Sodium Bicarbonate 2.5 MEQ/5 ML VIAL ONE (10:43)
[2022-03-21 11:09] VITALS: BP 95/66; TEMP 97.7
== END 2022-03-21 11:55 | disposition home or self-care (01) ==
LOC: CSHRAD 10:19
PROVIDERS: ATTEND Specialist
PROC: 0W9G3ZZ Drainage of Peritoneal Cavity, Percutaneous Approach (ICD-10-PCS; principal; 2022-03-21)
DX: R18.8 Other ascites (principal)
CPT/HCPCS: 49083

== ENCOUNTER 2022-03-28 10:10 | Day surgery (SDC) | payer MEDICARE ==
[2022-03-28] MEDS ORDERED: Lidocaine 1% MPF 2 ML VIAL ONE (10:46)
[2022-03-28] MEDS ORDERED: Sodium Bicarbonate 2.5 MEQ/5 ML VIAL ONE (10:46)
[2022-03-28 12:46] VITALS: BP 109/72; TEMP 97.5
== END 2022-03-28 11:40 | disposition home or self-care (01) ==
LOC: CSHRAD 10:10
PROVIDERS: ATTEND Specialist
PROC: 0W9G30Z Drainage of Peritoneal Cavity with Drainage Device, Percutaneous Approach (ICD-10-PCS; principal; 2022-03-28)
DX: R18.8 Other ascites (principal)
CPT/HCPCS: 49083

== ENCOUNTER 2022-03-28 12:59 | Outpatient (CLI) | payer MEDICARE | END 2022-03-28 13:00 | disposition home or self-care (01) | LOC: CSHWCC 12:59 | PROVIDERS: ATTEND Nurse Practitioner Family | DX: I87.312 Chronic venous hypertension (idiopathic) with ulcer of left lower extremity (principal); L97.822 Non-pressure chronic ulcer of other part of left lower leg with fat layer exposed ==

== ENCOUNTER 2022-04-04 10:21 | Day surgery (SDC) | payer MEDICARE ==
[2022-04-04] MEDS ORDERED: Lidocaine 1% PF 5 ML VIAL ONE (10:42)
[2022-04-04] MEDS ORDERED: Sodium Bicarbonate 2.5 MEQ/5 ML VIAL ONE (10:42)
[2022-04-04 10:47] VITALS: BP 94/66; TEMP 97.2
== END 2022-04-04 12:00 | disposition home or self-care (01) ==
LOC: CSHRAD 10:21
PROVIDERS: ATTEND Specialist
PROC: 0W9G3ZZ Drainage of Peritoneal Cavity, Percutaneous Approach (ICD-10-PCS; principal; 2022-04-04)
DX: R18.8 Other ascites (principal)
CPT/HCPCS: 49083

== ENCOUNTER 2022-04-04 13:22 | Outpatient (CLI) | payer MEDICARE | END 2022-04-04 13:23 | disposition home or self-care (01) | LOC: CSHWCC 13:22 | PROVIDERS: ATTEND Nurse Practitioner Family | DX: I87.312 Chronic venous hypertension (idiopathic) with ulcer of left lower extremity (principal); L97.822 Non-pressure chronic ulcer of other part of left lower leg with fat layer exposed; R60.0 Localized edema ==

== ENCOUNTER 2022-04-10 00:35 | Inpatient (IN) | payer MEDICARE ==
[2022-04-10] MEDS ORDERED: Albumin 25% 100 ML ONE (03:14)
[2022-04-10] MEDS ORDERED: Cefepime 1 GM VIAL ONE (03:35)
[2022-04-10] MEDS ORDERED: Calcium Chloride 1 GM/10 ML Abboject SYRINGE ONE (03:36)
[2022-04-10] MEDS ORDERED: Dextrose 50% Abboject 50 ML SYRINGE ONE ×2 (03:37→09:32)
[2022-04-10] MEDS ORDERED: Sodium Bicarb 50 MEQ/50 ML VIAL ONE (03:37)
[2022-04-10] MEDS ORDERED: Insulin Regular 300 UNITS/3 ML VIAL ONE (03:38)
[2022-04-10] MEDS ORDERED: Guaifenesin DM 100-10/5 ML UDCUP PO PRN (05:21)
[2022-04-10] MEDS ORDERED: Calcium Carbonate 500 MG ChewTAB PO PRN (05:21)
[2022-04-10] MEDS ORDERED: Acetaminophen 325 MG TAB PO PRN (05:21)
[2022-04-10] MEDS ORDERED: Ondansetron PF 4 MG/2 ML Vial IVP PRN (05:21)
[2022-04-10 07:12] LABS: Hemoglobin 13.9 g/dL (13.5-17.5); Mean Corpuscular HGB CONC 33.5 g/dL (32.0-36.0); Mean Corpuscular Hemoglobin 28.2 pg (27.0-33.0); Mean Corpuscular Volume 84.2 fl (81.2-95.1); Platelet Count 182 10x3/uL (150-450); RBC Distribution Width 14.5 % (11.5-14.5); Red Blood Cell (RBC) Count 4.93 10x6/uL (4.32-5.72); White Blood Cell (WBC) Count 15.5 10x3/uL (3.5-10.5)
[2022-04-10 07:13] LABS: #Monocytes 0.5 10x3/uL (0.0-1.1); #Neutrophils 14.6 10x3/uL (1.5-8.4); %Basophils 0.1 % (0.0-2.0); %Lymphocytes 1.9 % (18.0-47.0); %Monocytes 3.2 % (0.0-10.0); %Neutrophils 94.2 % (40.0-75.0); Mean Platelet Volume 11.3 fl (7.4-10.4)
[2022-04-10 07:17] LABS: Anion Gap 19 mmol/L (10-20); BUN (Urea Nitrogen) 102 mg/dL (8.4-25.7); Calc. Creatinine Clearance 0 mL/min (70-130); Calcium 8.5 mg/dL (7.8-10.44); Carbon Dioxide 19 mmol/L (23-31); Chloride 95 mmol/L (98-107); Estimated GFR 20; Glucose 81 mg/dL (80-115); Potassium 6.1 mmol/L (3.5-5.1); Sodium 127 mmol/L (136-145)
[2022-04-10 07:35] LABS: CK (CPK) 386 U/L (30-200)
[2022-04-10 07:46] LABS: SARS-CoV-2 NAA Rapid Test Not Detected (NotDetected)
[2022-04-10] MEDS: Amiodarone 200 MG TAB PO SCH (08:05)
[2022-04-10] MEDS: Apixaban 5 MG TAB PO SCH ×2 (08:05→20:14)
[2022-04-10] MEDS: Albumin 25% 25 GM/100 ML BOT IVPB SCH ×3 (08:06→20:13)
[2022-04-10] MEDS: Polyethylene Glycol 3350 17 GM Packet PO SCH (08:08)
[2022-04-10] MEDS: Senokot S 8.6-50 MG TAB PO SCH ×2 (08:08→20:14)
[2022-04-10 09:12] LABS: Anion Gap 19 mmol/L (10-20); BUN (Urea Nitrogen) 96 mg/dL (8.4-25.7); Calc. Creatinine Clearance 23 mL/min (70-130); Calcium 9.2 mg/dL (7.8-10.44); Carbon Dioxide 21 mmol/L (23-31); Chloride 96 mmol/L (98-107); Estimated GFR 22; Potassium 4.8 mmol/L (3.5-5.1); Sodium 131 mmol/L (136-145)
[2022-04-10 09:13] LABS: INR-International Normal Ratio 1.2; Prothrombin Time 12.5 sec (9.5-12.1)
[2022-04-10 09:20] LABS: Glucose 59 mg/dL (80-115)
[2022-04-10] MEDS ORDERED: Dextrose 5% in Water 1,000 ML IV PRN (09:26)
[2022-04-10] MEDS ORDERED: HumaLOG 300 UNITS/3 ML VIAL SC PRN (09:26)
[2022-04-10] MEDS: Dextrose 50% Abboject 50 ML SYRINGE SLOW IVP PRN (09:31)
[2022-04-10 09:42] LABS: ALT (SGPT) 16 U/L (8-55); AST (SGOT) 30 U/L (5-34); Albumin 3.2 g/dL (3.4-4.8); Alkaline Phosphatase 113 U/L (40-110); Bilirubin, Direct 1.2 mg/dL (0.1-0.3); Bilirubin, Total 2.2 mg/dL (0.2-1.2); Protein, Total 6.6 g/dL (5.8-8.1)
[2022-04-10] MEDS: HYDROcodone/Acetaminophen 5/325 mg Tablet PO PRN (13:13)
[2022-04-10] MEDS ORDERED: Iopamidol 300 61% 100 ML VIAL FS ONE (14:07)
[2022-04-10] MEDS: Atorvastatin Calcium 10 MG TAB PO SCH (20:13)
[2022-04-10] MEDS ORDERED: Tamsulosin HCl 0.4 MG CAP PO SCH (21:00)
[2022-04-11 00:20] LABS: Creatinine, Urine 115.43 mg/dL (63-166)
[2022-04-11 02:08] LABS: Bilirubin Neg (Negative); Blood, Urine 10 (Negative); Clarity Clear (Clear); Glucose, Urine (Dipstick) Normal (Negative); Ketone, Urine Negative (Negative); Leukocyte Negative (Negative); Nitrite Negative (Negative); Protein, Urine (Dipstick) 30 mg/dl (Neg-Trace)
[2022-04-11 02:17] LABS: Bacteria/HPF None Seen HPF (None Seen); Squamous Epithelial 0-3 HPF (0-3); WBC/HPF 0-3 HPF (0-3)
[2022-04-11] MEDS: Albumin 25% 25 GM/100 ML BOT IVPB SCH ×2 (03:10→19:54)
[2022-04-11 03:44] LABS: #Monocytes 0.5 10x3/uL (0.0-1.1); %Basophils 0.1 % (0.0-2.0); %Lymphocytes 2.5 % (18.0-47.0); %Monocytes 3.9 % (0.0-10.0); %Neutrophils 92.9 % (40.0-75.0); Hemoglobin 13.4 g/dL (13.5-17.5); Mean Corpuscular HGB CONC 33.9 g/dL (32.0-36.0); Mean Corpuscular Hemoglobin 28.4 pg (27.0-33.0); Mean Corpuscular Volume 83.7 fl (81.2-95.1); Mean Platelet Volume 11.7 fl (7.4-10.4); Platelet Count 167 10x3/uL (150-450); RBC Distribution Width 14.4 % (11.5-14.5); Red Blood Cell (RBC) Count 4.72 10x6/uL (4.32-5.72); White Blood Cell (WBC) Count 11.9 10x3/uL (3.5-10.5)
[2022-04-11 03:58] LABS: Anion Gap 16 mmol/L (10-20); BUN (Urea Nitrogen) 93 mg/dL (8.4-25.7); Calc. Creatinine Clearance 26 mL/min (70-130); Calcium 8.7 mg/dL (7.8-10.44); Carbon Dioxide 19 mmol/L (23-31); Chloride 96 mmol/L (98-107); Estimated GFR 25; Glucose 103 mg/dL (80-115); Potassium 4.2 mmol/L (3.5-5.1); Sodium 127 mmol/L (136-145)
[2022-04-11] MEDS ORDERED: Lidocaine 1% PF 5 ML VIAL ONE (08:27)
[2022-04-11] MEDS ORDERED: Sodium Bicarbonate 2.5 MEQ/5 ML VIAL ONE (08:27)
[2022-04-11] MEDS: Polyethylene Glycol 3350 17 GM Packet PO SCH (08:31)
[2022-04-11] MEDS: Apixaban 5 MG TAB PO SCH ×2 (08:32→21:16)
[2022-04-11] MEDS: Amiodarone 200 MG TAB PO SCH (08:32)
[2022-04-11] MEDS: Senokot S 8.6-50 MG TAB PO SCH ×2 (08:32→21:16)
[2022-04-11] MEDS: Bisacodyl 5 MG TAB PO PRN (15:57)
[2022-04-11 16:26] LABS: Lipase 8 U/L (8-78)
[2022-04-11] MEDS: Atorvastatin Calcium 10 MG TAB PO SCH (21:16)
[2022-04-11] MEDS: Tamsulosin HCl 0.4 MG CAP PO SCH (21:16)
[2022-04-11] MEDS: HYDROcodone/Acetaminophen 5/325 mg Tablet PO PRN (21:23)
[2022-04-12] MEDS: Albumin 25% 25 GM/100 ML BOT IVPB SCH ×3 (01:11→12:46)
[2022-04-12 04:28] LABS: #Monocytes 0.5 10x3/uL (0.0-1.1); #Neutrophils 10.3 10x3/uL (1.5-8.4); %Basophils 0.1 % (0.0-2.0); %Eosinophils 0.1 % (0.0-6.0); %Lymphocytes 2.9 % (18.0-47.0); %Monocytes 4.6 % (0.0-10.0); %Neutrophils 91.9 % (40.0-75.0); Mean Corpuscular HGB CONC 34.8 g/dL (32.0-36.0); Mean Corpuscular Hemoglobin 28.8 pg (27.0-33.0); Mean Corpuscular Volume 82.7 fl (81.2-95.1); Mean Platelet Volume 11.7 fl (7.4-10.4); Platelet Count 150 10x3/uL (150-450); RBC Distribution Width 14.2 % (11.5-14.5); Red Blood Cell (RBC) Count 4.52 10x6/uL (4.32-5.72); White Blood Cell (WBC) Count 11.2 10x3/uL (3.5-10.5)
[2022-04-12 05:31] LABS: Anion Gap 15 mmol/L (10-20); BUN (Urea Nitrogen) 95 mg/dL (8.4-25.7); Calc. Creatinine Clearance 28 mL/min (70-130); Calcium 8.5 mg/dL (7.8-10.44); Carbon Dioxide 20 mmol/L (23-31); Chloride 96 mmol/L (98-107); Estimated GFR 28; Glucose 103 mg/dL (80-115); Potassium 4.1 mmol/L (3.5-5.1); Sodium 127 mmol/L (136-145)
[2022-04-12] MEDS: Senokot S 8.6-50 MG TAB PO SCH ×2 (08:26→21:14)
[2022-04-12] MEDS: Amiodarone 200 MG TAB PO SCH (08:26)
[2022-04-12] MEDS: Apixaban 5 MG TAB PO SCH ×2 (08:26→21:14)
[2022-04-12] MEDS: Polyethylene Glycol 3350 17 GM Packet PO SCH (08:27)
[2022-04-12] MEDS: HYDROcodone/Acetaminophen 5/325 mg Tablet PO PRN ×3 (09:09→21:15)
[2022-04-12] MEDS: Tamsulosin HCl 0.4 MG CAP PO SCH (21:14)
[2022-04-12] MEDS: Atorvastatin Calcium 10 MG TAB PO SCH (21:14)
[2022-04-13 03:50] LABS: #Monocytes 0.6 10x3/uL (0.0-1.1); #Neutrophils 10.7 10x3/uL (1.5-8.4); %Basophils 0.3 % (0.0-2.0); %Eosinophils 0.1 % (0.0-6.0); %Lymphocytes 3.4 % (18.0-47.0); %Monocytes 4.8 % (0.0-10.0); %Neutrophils 90.6 % (40.0-75.0); Hemoglobin 14.5 g/dL (13.5-17.5); Mean Corpuscular HGB CONC 34.1 g/dL (32.0-36.0); Mean Corpuscular Hemoglobin 28.6 pg (27.0-33.0); Mean Corpuscular Volume 83.8 fl (81.2-95.1); Mean Platelet Volume 11.8 fl (7.4-10.4); Platelet Count 167 10x3/uL (150-450); RBC Distribution Width 14.6 % (11.5-14.5); Red Blood Cell (RBC) Count 5.07 10x6/uL (4.32-5.72); White Blood Cell (WBC) Count 11.8 10x3/uL (3.5-10.5)
[2022-04-13 04:04] LABS: Anion Gap 15 mmol/L (10-20); BUN (Urea Nitrogen) 98 mg/dL (8.4-25.7); Calc. Creatinine Clearance 27 mL/min (70-130); Calcium 9.2 mg/dL (7.8-10.44); Carbon Dioxide 24 mmol/L (23-31); Chloride 93 mmol/L (98-107); Estimated GFR 27; Glucose 95 mg/dL (80-115); Potassium 4.9 mmol/L (3.5-5.1); Sodium 127 mmol/L (136-145)
[2022-04-13] MEDS: Apixaban 5 MG TAB PO SCH ×2 (08:25→20:20)
[2022-04-13] MEDS: Amiodarone 200 MG TAB PO SCH (08:25)
[2022-04-13] MEDS: HYDROcodone/Acetaminophen 5/325 mg Tablet PO PRN ×3 (08:26→23:01)
[2022-04-13] MEDS: Polyethylene Glycol 3350 17 GM Packet PO SCH (08:26)
[2022-04-13] MEDS: Senokot S 8.6-50 MG TAB PO SCH ×2 (08:26→20:20)
[2022-04-13] MEDS: Atorvastatin Calcium 10 MG TAB PO SCH (20:20)
[2022-04-13] MEDS: Tamsulosin HCl 0.4 MG CAP PO SCH (20:21)
[2022-04-14 04:34] LABS: #Monocytes 0.6 10x3/uL (0.0-1.1); #Neutrophils 10.8 10x3/uL (1.5-8.4); %Basophils 0.2 % (0.0-2.0); %Eosinophils 0.3 % (0.0-6.0); %Lymphocytes 3.8 % (18.0-47.0); %Monocytes 5.1 % (0.0-10.0); %Neutrophils 89.8 % (40.0-75.0); Hemoglobin 14.3 g/dL (13.5-17.5); Mean Corpuscular HGB CONC 33.9 g/dL (32.0-36.0); Mean Corpuscular Hemoglobin 28.1 pg (27.0-33.0); Mean Corpuscular Volume 83.1 fl (81.2-95.1); Mean Platelet Volume 11.8 fl (7.4-10.4); Platelet Count 170 10x3/uL (150-450); RBC Distribution Width 14.7 % (11.5-14.5); Red Blood Cell (RBC) Count 5.08 10x6/uL (4.32-5.72)
[2022-04-14 04:44] LABS: Anion Gap 17 mmol/L (10-20); BUN (Urea Nitrogen) 104 mg/dL (8.4-25.7); Calc. Creatinine Clearance 25 mL/min (70-130); Calcium 9.3 mg/dL (7.8-10.44); Carbon Dioxide 22 mmol/L (23-31); Chloride 93 mmol/L (98-107); Estimated GFR 25; Glucose 92 mg/dL (80-115); Potassium 5.6 mmol/L (3.5-5.1); Sodium 126 mmol/L (136-145)
[2022-04-14] MEDS: Amiodarone 200 MG TAB PO SCH (09:53)
[2022-04-14] MEDS: Polyethylene Glycol 3350 17 GM Packet PO SCH (09:53)
[2022-04-14] MEDS: Senokot S 8.6-50 MG TAB PO SCH ×2 (09:53→21:00)
[2022-04-14] MEDS: Apixaban 5 MG TAB PO SCH ×2 (09:53→21:00)
[2022-04-14] MEDS ORDERED: LOKELMA 10 GM PACKET PO SCH (10:45)
[2022-04-14] MEDS: Tamsulosin HCl 0.4 MG CAP PO SCH (21:00)
[2022-04-14] MEDS: Atorvastatin Calcium 10 MG TAB PO SCH (21:00)
[2022-04-15] MEDS: HYDROcodone/Acetaminophen 5/325 mg Tablet PO PRN ×2 (01:55→15:11)
[2022-04-15 04:09] LABS: Anion Gap 21 mmol/L (10-20); BUN (Urea Nitrogen) 101 mg/dL (8.4-25.7); Calc. Creatinine Clearance 26 mL/min (70-130); Calcium 8.9 mg/dL (7.8-10.44); Carbon Dioxide 19 mmol/L (23-31); Chloride 90 mmol/L (98-107); Estimated GFR 25; Glucose 99 mg/dL (80-115); Potassium 5.8 mmol/L (3.5-5.1); Sodium 124 mmol/L (136-145)
[2022-04-15] MEDS: Apixaban 5 MG TAB PO SCH (09:20)
[2022-04-15] MEDS: Amiodarone 200 MG TAB PO SCH (09:20)
[2022-04-15] MEDS: Polyethylene Glycol 3350 17 GM Packet PO SCH (09:20)
[2022-04-15] MEDS: Senokot S 8.6-50 MG TAB PO SCH (09:20)
[2022-04-15 13:00] LABS: Anion Gap 18 mmol/L (10-20); BUN (Urea Nitrogen) 110 mg/dL (8.4-25.7); Calc. Creatinine Clearance 25 mL/min (70-130); Carbon Dioxide 20 mmol/L (23-31); Chloride 91 mmol/L (98-107); Estimated GFR 23; Glucose 108 mg/dL (80-115); Potassium 5.6 mmol/L (3.5-5.1); Sodium 123 mmol/L (136-145)
[2022-04-15 16:44] LABS: Hep B Surf Ag Non-Reactive S/CO (NonReactive)
[2022-04-15 16:51] LABS: HBSAg Index 0.18 S/CO (0-0.99)
[2022-04-15 23:06] LABS: HBSAB Concentration Less than 8.00 mIU/mL; Hep B Core Total Ab Non-Reactive (NonReactive); Hep B Core Total Index 0.08 S/CO (0-0.79); Hep B Surf AB Non-Reactive (NonReactive); Hep C IgG Ab Non-Reactive (NonReactive); Hep C Index 0.05 S/CO (0-0.79)
[2022-04-15 23:50] LABS: #Monocytes 0.7 10x3/uL (0.0-1.1); %Basophils 0.2 % (0.0-2.0); %Lymphocytes 3.3 % (18.0-47.0); %Monocytes 4.9 % (0.0-10.0); %Neutrophils 90.7 % (40.0-75.0); Hemoglobin 14.6 g/dL (13.5-17.5); Mean Corpuscular HGB CONC 34.3 g/dL (32.0-36.0); Mean Corpuscular Hemoglobin 28.6 pg (27.0-33.0); Mean Corpuscular Volume 83.4 fl (81.2-95.1); Mean Platelet Volume 12.1 fl (7.4-10.4); Platelet Count 155 10x3/uL (150-450); RBC Distribution Width 14.6 % (11.5-14.5); Red Blood Cell (RBC) Count 5.11 10x6/uL (4.32-5.72); White Blood Cell (WBC) Count 13.2 10x3/uL (3.5-10.5)
[2022-04-15] MEDS: DOBUTamine 500 mg/250 ml 500 MG in Premix Bag 1 BAG IVPB SCH (23:59)
[2022-04-16] MEDS: HYDROcodone/Acetaminophen 5/325 mg Tablet PO PRN
[2022-04-16] MEDS: Atorvastatin Calcium 10 MG TAB PO SCH ×2 (00:01→19:51)
[2022-04-16] MEDS: Apixaban 5 MG TAB PO SCH ×3 (00:01→19:51)
[2022-04-16] MEDS: Senokot S 8.6-50 MG TAB PO SCH ×3 (00:01→19:51)
[2022-04-16] MEDS ORDERED: Haloperidol Lactate 5 MG/ML VIAL IM SCH (02:15)
[2022-04-16 04:51] LABS: Anion Gap 23 mmol/L (10-20); BUN (Urea Nitrogen) 107 mg/dL (8.4-25.7); Calc. Creatinine Clearance 24 mL/min (70-130); Carbon Dioxide 17 mmol/L (23-31); Chloride 91 mmol/L (98-107); Estimated GFR 21; Glucose 84 mg/dL (80-115); Potassium 5.9 mmol/L (3.5-5.1); Sodium 125 mmol/L (136-145)
[2022-04-16] MEDS: Amiodarone 200 MG TAB PO SCH (09:07)
[2022-04-16] MEDS ORDERED: NOREPINEPHRINE 8 MG/250 ML-D5W 250 ML ONE (10:30)
[2022-04-16] MEDS: DOBUTamine 500 mg/250 ml 500 MG in Premix Bag 1 BAG IVPB SCH (16:39)
[2022-04-16 16:40] LABS: Anion Gap 17 mmol/L (10-20); BUN (Urea Nitrogen) 78 mg/dL (8.4-25.7); Calc. Creatinine Clearance 31 mL/min (70-130); Calcium 8.7 mg/dL (7.8-10.44); Carbon Dioxide 24 mmol/L (23-31); Chloride 94 mmol/L (98-107); Estimated GFR 29; Glucose 79 mg/dL (80-115); Potassium 4.9 mmol/L (3.5-5.1); Sodium 130 mmol/L (136-145)
[2022-04-16] MEDS: Polyethylene Glycol 3350 17 GM Packet PO SCH (16:42)
[2022-04-16 16:58] LABS: SARS-CoV-2 NAA Rapid Test Not Detected (NotDetected)
[2022-04-16] MEDS: Dextrose 50% Abboject 50 ML SYRINGE SLOW IVP PRN (17:37)
[2022-04-16] MEDS: Tamsulosin HCl 0.4 MG CAP PO SCH ×2 (19:51)
[2022-04-17 05:01] LABS: Anion Gap 17 mmol/L (10-20); BUN (Urea Nitrogen) 83 mg/dL (8.4-25.7); Calc. Creatinine Clearance 32 mL/min (70-130); Calcium 8.7 mg/dL (7.8-10.44); Carbon Dioxide 22 mmol/L (23-31); Chloride 95 mmol/L (98-107); Estimated GFR 30; Glucose 105 mg/dL (80-115); Potassium 4.7 mmol/L (3.5-5.1); Sodium 129 mmol/L (136-145)
[2022-04-17] MEDS: DOBUTamine 500 mg/250 ml 500 MG in Premix Bag 1 BAG IVPB SCH ×2 (05:27→17:46)
[2022-04-17] MEDS: Apixaban 5 MG TAB PO SCH ×2 (07:31→19:58)
[2022-04-17] MEDS: Senokot S 8.6-50 MG TAB PO SCH ×2 (07:31→19:58)
[2022-04-17] MEDS: Amiodarone 200 MG TAB PO SCH (07:31)
[2022-04-17] MEDS: Polyethylene Glycol 3350 17 GM Packet PO SCH (09:30)
[2022-04-17] MEDS: Bisacodyl 5 MG TAB PO PRN (09:52)
[2022-04-17] MEDS: HYDROcodone/Acetaminophen 5/325 mg Tablet PO PRN (18:11)
[2022-04-17] MEDS: Atorvastatin Calcium 10 MG TAB PO SCH (19:58)
[2022-04-17] MEDS: Tamsulosin HCl 0.4 MG CAP PO SCH (19:58)
[2022-04-18] MEDS: Amiodarone 200 MG TAB PO SCH (07:54)
[2022-04-18] MEDS: DOBUTamine 500 mg/250 ml 500 MG in Premix Bag 1 BAG IVPB SCH (07:54)
[2022-04-18] MEDS: Senokot S 8.6-50 MG TAB PO SCH ×2 (07:54→20:11)
[2022-04-18 08:36] LABS: #Monocytes 0.6 10x3/uL (0.0-1.1); #Neutrophils 13.1 10x3/uL (1.5-8.4); %Basophils 0.1 % (0.0-2.0); %Lymphocytes 1.8 % (18.0-47.0); %Monocytes 4.5 % (0.0-10.0); %Neutrophils 92.9 % (40.0-75.0); Hemoglobin 12.1 g/dL (13.5-17.5); Mean Corpuscular HGB CONC 34.3 g/dL (32.0-36.0); Mean Corpuscular Hemoglobin 28.3 pg (27.0-33.0); Mean Corpuscular Volume 82.7 fl (81.2-95.1); Mean Platelet Volume 11.5 fl (7.4-10.4); Platelet Count 98 10x3/uL (150-450); RBC Distribution Width 14.7 % (11.5-14.5); Red Blood Cell (RBC) Count 4.27 10x6/uL (4.32-5.72); White Blood Cell (WBC) Count 14.1 10x3/uL (3.5-10.5)
[2022-04-18] MEDS: Apixaban 2.5 MG TAB PO SCH ×2 (08:40→20:11)
[2022-04-18 08:50] LABS: Anion Gap 14 mmol/L (10-20); BUN (Urea Nitrogen) 88 mg/dL (8.4-25.7); Calc. Creatinine Clearance 39 mL/min (70-130); Calcium 8.1 mg/dL (7.8-10.44); Carbon Dioxide 23 mmol/L (23-31); Chloride 94 mmol/L (98-107); Estimated GFR 36; Glucose 91 mg/dL (80-115); Potassium 4.6 mmol/L (3.5-5.1); Sodium 126 mmol/L (136-145)
[2022-04-18] MEDS: Polyethylene Glycol 3350 17 GM Packet PO SCH (09:06)
[2022-04-18] MEDS: HYDROcodone/Acetaminophen 5/325 mg Tablet PO PRN ×2 (09:13→14:09)
[2022-04-18] MEDS ORDERED: Lidocaine 1% PF 5 ML VIAL ONE (13:05)
[2022-04-18] MEDS ORDERED: Sodium Bicarbonate 2.5 MEQ/5 ML VIAL ONE (13:05)
[2022-04-18] MEDS: NOREPINEPHRINE 8 MG/250 ML-D5W 250 ML IVPB SCH (16:50)
[2022-04-18] MEDS: Tamsulosin HCl 0.4 MG CAP PO SCH (20:11)
[2022-04-19] MEDS: HYDROcodone/Acetaminophen 5/325 mg Tablet PO PRN ×2 (04:55→13:53)
[2022-04-19] MEDS: NOREPINEPHRINE 8 MG/250 ML-D5W 250 ML IVPB SCH ×2 (04:56→15:42)
[2022-04-19 05:30] VITALS: BP 84/55; TEMP 97.8
[2022-04-19] MEDS: Amiodarone 200 MG TAB PO SCH (07:30)
[2022-04-19] MEDS: Polyethylene Glycol 3350 17 GM Packet PO SCH (07:30)
[2022-04-19] MEDS: Apixaban 2.5 MG TAB PO SCH (07:30)
[2022-04-19] MEDS: Senokot S 8.6-50 MG TAB PO SCH (07:30)
[2022-04-19] MEDS: DOBUTamine 500 mg/250 ml 500 MG in Premix Bag 1 BAG IVPB SCH (09:47)
[2022-04-19 11:40] LABS: ALT (SGPT) 16 U/L (8-55); AST (SGOT) 26 U/L (5-34); Albumin 2.7 g/dL (3.4-4.8); Alkaline Phosphatase 102 U/L (40-110); Bilirubin, Total 2.1 mg/dL (0.2-1.2)
[2022-04-19] MEDS ORDERED: Albumin 25% 25 GM/100 ML BOT IVPB SCH (11:45)
[2022-04-19 12:18] VITALS: BMI 20.5
[2022-04-19 15:58] LABS: SARS-CoV-2 NAA Rapid Test Not Detected (NotDetected)
[2022-04-19 15:58] LABS: Lactic Acid 1.4 mmol/L (0.5-2.2)
== END 2022-04-19 19:40 | disposition home or self-care (01) | DRG 441 ==
LOC: CSHERS 00:35 → CSHICU 07:11 → CSHTELE 04-12 17:00 → CSHIMCU 04-15 20:37
PROVIDERS: ADMIT Student in an Organized Health Care Education/Training Program; ATTEND Internal Medicine
PROC: 0W9G3ZZ Drainage of Peritoneal Cavity, Percutaneous Approach (ICD-10-PCS; principal; 2022-04-11)
PROC: 06HY33Z Insertion of Infusion Device into Lower Vein, Percutaneous Approach (ICD-10-PCS; 2022-04-15)
PROC: 06HY33Z Insertion of Infusion Device into Lower Vein, Percutaneous Approach (ICD-10-PCS; 2022-04-16)
PROC: 5A1D70Z Performance of Urinary Filtration, Intermittent, Less than 6 Hours Per Day (ICD-10-PCS; 2022-04-16)
PROC: 5A09457 Assistance with Respiratory Ventilation, 24-96 Consecutive Hours, Continuous Positive Airway Pressure (ICD-10-PCS; 2022-04-16)
PROC: 0W9G3ZZ Drainage of Peritoneal Cavity, Percutaneous Approach (ICD-10-PCS; 2022-04-18)
DX: K76.7 Hepatorenal syndrome (principal); I49.01 Ventricular fibrillation; N18.6 End stage renal disease; E43 Unspecified severe protein-calorie malnutrition; N17.9 Acute kidney failure, unspecified; E87.1 Hypo-osmolality and hyponatremia; I47.2 Ventricular tachycardia; R64 Cachexia; I42.0 Dilated cardiomyopathy; I50.22 Chronic systolic (congestive) heart failure; I13.2 Hypertensive heart and chronic kidney disease with heart failure and with stage 5 chronic kidney disease, or end stage renal disease; R18.8 Other ascites; G89.29 Other chronic pain; K59.00 Constipation, unspecified; E87.5 Hyperkalemia; E88.09 Other disorders of plasma-protein metabolism, not elsewhere classified; K57.30 Diverticulosis of large intestine without perforation or abscess without bleeding; I48.0 Paroxysmal atrial fibrillation; T50.0X5A Adverse effect of mineralocorticoids and their antagonists, initial encounter; I95.89 Other hypotension; D63.1 Anemia in chronic kidney disease; K74.60 Unspecified cirrhosis of liver; Z20.822 Contact with and (suspected) exposure to COVID-19; Z86.73 Personal history of transient ischemic attack (TIA), and cerebral infarction without residual deficits; Z98.890 Other specified postprocedural states; Z95.810 Presence of automatic (implantable) cardiac defibrillator; Z87.891 Personal history of nicotine dependence; Z68.20 Body mass index [BMI] 20.0-20.9, adult
CPT/HCPCS: 36415; 36416; 49083; 71045; 74177; 80048; 80076; 81001; 82140; 82550; 82570; 83605; 83690; 83880; 84156; 84443; 85025; 85610; 86704; 87340; 90935; 93005; 93306; 94660; 94760; 96374; 96375; G0257; J0692; J1250; J1630; J1815; J2405; J3370; J7999; P9047; Q9967; U0002; U0003; U0005